=== PATIENT | female | born 1950 | race Caucasian/White ===

== ENCOUNTER → 2016-04-16 | Outpatient (CLI) | payer OTHER ==
--- NOTE | 2016-04-17 08:57 | DI ---
History: Left femoral radiculopathy. Evaluate for spinal abnormality. Procedure: This examination was performed on a 1.5 Tonya magnet in sagittal and axial projection with the right imaging sequences. Prior study x-ray of the hip done on 02/01/16 Findings: Alignment is anatomic. The conus medullaris is unremarkable. No disc height loss observed. Overall, there is some disc desiccation with the exception of L5-S1. Review image 8/15. Upper foramina on this study widely patent. No disc herniations are seen from T10-T11 down to T12-L1. L1-L2: Very slight disc bulge without nerve root encroachment. Some facet hypertrophic L2-L3 shows moderate facet hypertrophic without foraminal compromise. No disc herniation observed L3-L4 again shows moderate facet hypertrophy without foraminal compromise. No posterior disc bulge id entified. Nerve roots are well accommodated. L4-L5 shows a marked degree of facet hypertrophy with narrowing of the thecal sac, best seen on image 31/50. 6 mm sagittal diameter identified and marked narrowing of the lateral recesses right more so than left. This would primarily affect the right L5 nerve root. Regarding the passing of the L4 nerve root intraforaminally, there is contact on the left from below by disc protrusion that abuts the exi ting nerve is surrounded on either side by epidural fat; on the right side, there is nerve root conta ct from below by the protruding disc, 4/15 image, and posteriorly from the bony facet. Some epidural fat is seen superiorly with good nerve root accommodation. No slippage of the vertebral body is identified. L5-S1 shows widely patent foramina without spinal stenosis. Some facet hypertrophy without neurologic encroachment present. Impression: Spinal stenosis L4-L5 with narrowing of the thecal sac overall. Bilateral lateral recess encroachment probably affecting both L5 nerve roots right more so than left. Borderline foraminal compromise left side at L4-L5. Likely L4 nerve root compromise intraforaminally on the right side. See detailed discussion above. Multilevel facet hypertrophy. Level disc desiccation without height loss Slight posterior disc bulge L1-L2 which may account for discogenic pain without focal nerve root encr oachment
== END ==
LOC: MRI 12:47
PROVIDERS: ATTEND Orthopaedic Surgery
DX: M54.16 Radiculopathy, lumbar region (principal); G57.22 Lesion of femoral nerve, left lower limb; M54.42 Lumbago with sciatica, left side; M47.816 Spondylosis without myelopathy or radiculopathy, lumbar region
CPT/HCPCS: 72148

== ENCOUNTER → 2016-05-03 | Outpatient (CLI) | payer OTHER ==
[2016-05-03 15:46] LABS: CREATININE 0.7 mg/dL (0.50-1.20)
== END ==
LOC: LAB 09:41
PROVIDERS: ATTEND Physician Assistant Medical
DX: M54.16 Radiculopathy, lumbar region (principal)
CPT/HCPCS: 82565; 82947; 84520

== ENCOUNTER → 2016-06-14 | Outpatient (CLI) | payer OTHER ==
[2016-06-14 15:07] LABS: HEMOGLOBIN A1C 5.62 % (4.2-6.0); MEAN BLOOD GLUCOSE (CALC) 101.146 mg/dL
== END ==
LOC: LAB 11:29
DX: E11.9 Type 2 diabetes mellitus without complications (principal)
CPT/HCPCS: 83036

== ENCOUNTER 2016-07-13 12:24 | Emergency (ER) | payer OTHER ==
[2016-07-13] MEDS ORDERED: ASPIRIN 81 MG (BABY) CHEWABLE TABLET PO ONE (12:59)
[2016-07-13] MEDS ORDERED: NORMAL SALINE 10 ML SYRINGE FLUSH IVP PRN (12:59)
[2016-07-13] MEDS ORDERED: Sodium Chloride 0.9% 1,000 ML PRIMARY IV ONE (12:59)
--- NOTE | 2016-07-13 13:02 | EKG ---
[address] [address] Measurements Intervals [place] Rate: 69 P: 50 AL: 182 QRS: 35 QRSD: 81 T: 79 QT: 474 QTc: 492 Interpretive Statements SINUS RHYTHM PROLONGED QT INTERVAL Compared to ECG 12/28/2014 09:52:37 No significant changes Electronically Signed On 07-13-16 16:55:51 MDT by Magdy Rosas [email or web address]
[2016-07-13 13:16] LABS: BASOPHILS # (AUTO) 0.02 10*3/UL; BASOPHILS % (AUTO) 0.4 % (0-1); EOSINOPHILS # (AUTO) 0.11 10*3/UL; EOSINOPHILS % (AUTO) 2.2 % (0-8); HEMOGLOBIN 14.6 g/dL (12.0-16.0); LYMPHOCYTES # (AUTO) 1.76 10*3/uL; MEAN CORPUSCULAR HEMOGLOBIN 31.1 PG (27-31); MEAN CORPUSCULAR HGB CONC 33.2 g/dL (33-37); MEAN CORPUSCULAR VOLUME 93.6 FL (81-99); MEAN PLATELET VOLUME 11.9 FL (7.4-12.2); MONOCYTES # (AUTO) 0.33 10*3/UL (0.3-0.8); MONOCYTES % (AUTO) 6.7 % (5-15); NEUTROPHILS # (AUTO) 2.73 10*3/UL
[2016-07-13 13:18] LABS: PLATELET MORPHOLOGY COMMENT NORMAL MORPHOLOGY (NORM); RBC MORPHOLOGY COMMENT NORMAL MORPHOLOGY (NORM); WBC MORPHOLOGY COMMENT NORMAL MORPHOLOGY (NORM)
[2016-07-13 13:27] LABS: BLOOD UREA NITROGEN 26 mg/dL (7-22); BUN/CREATININE RATIO 37.14 (6-20); CALCIUM 9.3 mg/dL (8.7-10.7); EST GLOMERULAR FILTRATION > 60 (>60 ml/min/1.73m(2)); SERUM ALBUMIN 4.1 g/dL (3.5-4.8)
[2016-07-13 13:42] LABS: BILIRUBIN,URINE NEGATIVE (NEG); COLOR,URINE YELLOW; GLUCOSE, URINE (UA) NEGATIVE (NEG); NITRATE,URINE NEGATIVE (NEG); OCCULT BLOOD,URINE SMALL (NEG); PROTEIN,URINE NEGATIVE (NEG); UROBILINOGEN,URINE 0.2 mg/dL (0.2)
[2016-07-13 13:44] LABS: URINE SAMPLE TYPE VOID
[2016-07-13 13:45] LABS: SQUAMOUS EPITHELIAL CELL,UR RARE
[2016-07-13 13:45] LABS: CREATINE KINASE MB 0.86 NG/ML (0.00-5.00)
[2016-07-13 13:50] LABS: TROPONIN I < 0.012 ng/mL (< 0.040)
[2016-07-13 14:05] VITALS: RESP 18; TEMP 96.8
--- NOTE | 2016-07-13 14:12 | DI ---
AP CHEST X-RAY, 07/13/2016 11:59 AM : Clinical History: Chest pain. Previous Exam: None at this facility. There is no acute soft tissue or bony abnormality. There is mild cardiomegaly without CHF. There is n o acute infiltrate or effusion, and the lungs are hyperinflated. There is pulmonary arterial hyperten silvia and this patient may have underlying centrilobular emphysema. There are no pulmonary nodules. Readin. There is no acute infiltrate or effusion. 2. Cardiomegaly without CHF. 3. There is pulmonary arterial hypertension and this patient may have centrilobular emphysema.
--- NOTE | 2016-07-13 21:23 | PDOC ---
Palpitations HPI - General Chief Complaint: Dyspnea Stated Complaint: short of breath, fatigue, palpitations Date Seen by Provider: 07/13/16 Time Seen by Provider: 12:40 Source: POSITIVE: Patient Exam Limitations: POSITIVE: No limitations Nurse's Notes Reviewed & Considered: Yes Nurse's Notes Reviewed & Considered: Yes - History of Present Illness Initial Comments: The patient is a 65-year-old female. She states that for the past 1-1/2 weeks she has had intermittent episodes of a sensation of "an irregular heart rate". She states that she also has had some episodes of mild left subscapular discomfort. She states she has a sensation of "not being able to take a deep breath". She states she had a history of atrial fibrillation diagnosed 10 years ago. She is not on any anticoagulants. She does take atenolol and lisinopril. She smokes a half a pack of cigarettes per day. Body Location Affected: REPORTS: Chest (Palpitations as above) Timing: REPORTS: Intermittent Duration: >1 week (1-1/2 weeks) Severity: Moderate Quality: REPORTS: Other (Some mild discomfort left subscapular area) Gone now, lasted (minutes):: 1 Intermittent Episodes Lasting (minutes): 1 Context: REPORTS: Hx of Atrial Fibrillation. DENIES: Onset w/ Emotional Upset, Onset w/ Sleep, Hx of Caffeine Use, Hx of Decongestant Use, Hx of Cocaine Abuse , Hx of Amphetamine Abuse, Hx of Arrhythmia, Hx of VT, Hx of SVT, Hx of WPW, Other Associated Symptoms: REPORTS: Anxiety, Other (Left subscapular discomfort). DENIES: Fever, Chills, Sweating, Chest Pain, Chest Discomfort, Precordial Chest Pain, Mid-Chest Pain, Neck Pain, Back Pain, Headache, Hurts to Breathe, Shortness of Breath, Light-Headedness, Tingling in Hands, Tingling in Face, Muscle Spasms in Hands, Muscle Spasms in Feet Modifying Factors: improves with: None Reported Similar Symptoms Previously: Yes Recently seen/treated/hospitalized: No Any Prior Injuries Related to Current Complaint?: No - Patient Home Medications Home Medications: Home Medications Atenolol 1 tab PO DAILY #90 tab 11/28/15 Pravastatin Sodium 1 tab PO DAILY #90 tab 12/13/15 Lisinopril 1 tab PO DAILY #90 tab 04/03/16 Omeprazole 1 cap PO DAILY #30 cap 04/03/16 Clonazepam 0.5 - 1 tab PO TID #45 tab 05/30/16 Ropinirole HCl 0.5 mg PO BID #30 tab 07/02/16 L.acidoph & ShannanB.lactis [Probiotic] 1 cap PO DAILY 07/13/16 Sucralfate 1 gm PO DAILY 07/13/16 - Patient Allergies Allergies/Adverse Reactions: Allergies Allergy/AdvReac Type Severity Reaction Status Date / Time Sulfa (Sulfonamide Allergy Intermediate HIVES Verified 07/13/16 12:43 Antibiotics) Past Medical History - heen HEENT History: Denies History Cardiovascular History: Hypertension Respiratory History: Denies History Gastrointestinal History: GERD Genitourinary History: Denies History Endocrine History: Denies History Musculoskeletal History: Denies History Prosthesis or Implant: No Neurological History: Denies History Blood Disorders: Denies History Psychiatric History: Denies History Female Reproductive History: Denies History Obstetrical History: Denies History Cancer History: Denies History In Past Year Been Physically Harmed or Verbally Threatened: No History of MDRO: No Tobacco Use: Current Every Day Smoker Alcohol Use: Heavy How much alcohol do you normally drink a day?: 1-2 drinks daily Substance Use Type: None Previous Surgical History: Yes Type / Date of Surgery: total R knee, R toes, gums, tubal ligation Anesthesia Reactions: No Malignant Hyperthermia: No Family History of Malignant Hyperthermia: No Significant Family History: No pertinent family hx Past Medical History Reviewed: Reviewed - No Changes ROS - Limitations ROS Limitations: No Limitations Constitution: REPORTS: Denies Symptoms Cardiovascular: REPORTS: Heart Palpitations Respiratory: REPORTS: Denies Resp Symptoms Neurological: REPORTS: Denies Neuro Symptoms Gastrointestinal: REPORTS: Denies GI Symptoms Endocrine: REPORTS: Denies Symptoms Musculoskeletal: REPORTS: Denies MS Symptoms Genitourinary: REPORTS: Denies Symptoms Eyes: REPORTS: Denies Symptoms ENT: REPORTS: Denies Symptoms Skin: REPORTS: Denies Skin Symptoms Lympathic: REPORTS: Denies Lympathic Symptoms Immunologic: POSITIVE: Denies Symptoms Psychiatric: POSITIVE: Denies Psych Symptoms Palpitations Exam - General Appearance General Appearance: REPORTS: Alert, Cooperative, No Acute Distress, No Evidence of Trauma - HEENT HEENT: POSITIVE: Head Inspection Nml, Eyes Inspection Nml, Ears Inspection Nml, Nose Inspection Nml, Oral/Dental Inspect. Nml, Pharynx Inspect. Nml, PERRL, EOMI - Neck Neck: POSITIVE: Normal Inspection - Respiratory Respiratory: REPORTS: No Respiratory Distress, Breath Sounds Normal, Chest Non- Tender - Cardiovascular Cardiovascular: POSITIVE: Regular Rate and Rhythm, Normal PMI, No JVD, No Murmur , No Gallop, No Friction Rub, Other (patient kept on photograph retoucher in ER; remained in normal sinus rhythm with an occasional PAC) Peripheral Pulses: Radial (R): 2+, Radial (L): 2+ - Abdomen Abdomen: Soft: (All Quadrants), Normal Bowel Sounds: (All Quadrants), Denies Tenderness: (All Quadrants), No Splenomegaly: (All Quadrants), No Hepatomegaly: (All Quadrants), No Guarding: (All Quadrants), No Rebound: (All Quadrants), No Palpable Pulse: (All Quadrants), No Palpabale Mass: (All Quadrants), No Distention: (All Quadrants), No Rigidity: (All Quadrants) - Back Back: POSITIVE: Normal Inspection - Skin Skin: REPORTS: Intact, Normal For Race, Warm, Dry, No Rash - Extremities Extremity: Non-Tender: (All Extremities), Normal ROM: (All Extremities), Normal Inspection: (All Extremities) - Neurological / Psychological Neurological: POSITIVE: Oriented X3, home aide Normal As Tested, Motor Normal, Sensation Normal, 5, 6 Palpitations Progress - Results Reviewed by me Xrays/CTs/US Reviewed by me: Yes Discussed with Radiologist: No Radiology Findings: Chest x-ray normal Lab Results Reviewed: Yes (all normal) Lab Results:: Laboratory Results 07/13/16 07/13/16 Range/Units 12:36 13:00 WBC 4.96 (4.8-10.8) 10^3/uL RBC 4.70 (4.20-5.40) 10^6/uL Hgb 14.6 (12.0-16.0) g/dL Hct 44.0 (37.0-47.0) % MCV 93.6 (81-99) FL MCH 31.1 H (27-31) PG MCHC 33.2 (33-37) g/dL RDW Std Deviation 50.4 H (39-50) fL RDW Coeff of [place] 15.1 H (11.5-14.5) % Plt Count 132 L (140-350) 10*3/uL MPV 11.9 (7.4-12.2) FL Immature Gran % (Auto) 0.2 (0-5) % Neut % (Auto) 55.0 (50-80) % Lymph % (Auto) 35.5 (10-50) % [place] % (Auto) 6.7 (5-15) % Eos % (Auto) 2.2 (0-8) % Baso % (Auto) 0.4 (0-1) % Immature Gran # (Auto) 0.01 10*3/UL Neut # (Auto) 2.73 10*3/UL Lymph # (Auto) 1.76 10*3/uL [place] # (Auto) 0.33 (0.3-0.8) 10*3/UL Eos # (Auto) 0.11 10*3/UL Baso # (Auto) 0.02 10*3/UL WBC Morphology Comment Normal morphology (NORM) Plt Morphology Comment Normal morphology (NORM) RBC Morph Comment Normal morphology (NORM) Sodium 140 (135-145) meq/L Potassium 3.9 (3.8-5.2) meq/L Chloride 105 (98-112) meq/L Carbon Dioxide 25 (23-33) meq/L Anion Gap 10 (5-20) BUN 26 H (7-22) mg/dL Creatinine 0.7 (0.50-1.20) mg/dL Estimated GFR > 60 (>60 ml/min/1.73m(2)) BUN/Creatinine Ratio 37.14 H (6-20) Glucose 95 (78-110) mg/dL Calculated Osmolality 294.0 H (267-292) mOsm/kg Calcium 9.3 (8.7-10.7) mg/dL Total Bilirubin 0.8 (0.3-1.2) mg/dL AST 47 H (8-39) IU/L ALT 46 (9-52) IU/L Alkaline Phosphatase 69 (38-126) IU/L CK-MB (CK-2) 0.86 (0.00-5.00) NG/ML Troponin I < 0.012 (< 0.040) ng/mL Total Protein 7.0 (6.1-8.0) g/dL Albumin 4.1 (3.5-4.8) g/dL Globulin 2.9 (2.50-4.10) g/dL Albumin/Globulin Ratio 1.40 (1.3-2.0) mg/g TSH 1.17 (0.2700-4.2000) uIU/mL Ur Collection Type Void Urine Color Yellow Urine Clarity clear (CLEAR) Urine pH 6.0 (5.0-8.5) Ur Specific [place] 1.015 (1.005-1.030) Urine Protein Negative (NEG) mg/dl Urine Glucose (UA) Negative (NEG) mg/dL Urine Ketones Negative (NEG) Urine Occult Blood Small (NEG) Urine Nitrate Negative (NEG) Urine Bilirubin Negative (NEG) Urine Urobilinogen 0.2 (0.2) mg/dL Ur Leukocyte Esterase Negative (NEG) Urine RBC 2-5 (NONE) /hpf Urine WBC None (NONE) Ur Squamous Epith Cells Rare (NONE) Ur Renal Epithelial Cell None (NONE) Urine Crystals None Urine Bacteria None (NONE) Urine Casts None Urine Mucus None (NONE) Urine Trichomonas None (NONE) Urine Yeast None (NONE) EKG Interpreted/Reviewed By Me:: Yes (normal) EKG Interpretation:: POSITIVE: Normal Sinus Rhythm, Normal Rate, Normal Intervals, Normal [place], Normal QRS, Normal ST/T - Patient's Progress Pain Medication Addressed: POSITIVE: Not Applicable School/Work Release Addressed: POSITIVE: Not Applicable Re-examine Time: 14:20 Re-Examine Comment: Patient remained in normal sinus rhythm throughout her stay in the emergency room. Holter monitor placed in the emergency room and patient to follow-up with her primary care provider after holter monitoring is completed. Status: POSITIVE: Unchanged, Re-Examined - Consult Counseled: POSITIVE: Patient, RE: Lab Results, RE: Radiology Results, RE: DX, RE : Need for F/U Patient Care Time - Estimated PCT Patient Care Time (In Minutes): 45 Vital Signs - Recent Vital Signs Vital Signs: Vital Signs (Last 8 hours) Pulse Resp BP Pulse Ox 07/13/16 14:40 67 18 153/95 93 07/13/16 14:00 65 18 162/90 93 07/13/16 13:40 63 18 153/91 91 07/13/16 13:20 66 18 150/91 91 - VS Reviewed Vital Signs Reviewed: Yes Discharge Clinical Impression: Heart palpitations Discharge Disposition: Discharged to Home Condition: Stable Patient Instructions Given at Discharge: Palpitations (ED) Additional Instructions: I am not completely sure what the source of your sensation of irregular heartbeat is. Your heart rate has been completely normal and regular while you have been in the emergency room. The symptoms can easily be caused by anxiety. They can also be caused by irregularity of the heart rate. We have placed you on what is known as a Holter monitor in the emergency room. This will monitor every beat your heart makes while you are wearing it. Please follow the instructions of the environmental test technician who is placing the monitor. Follow-up with your primary care provider 5-10 days after the completion of your monitoring, and he or she will review the results and decide if any further treatment or evaluation is necessary. Return here anytime if condition worsens in any way. Follow Up With: JUAN DAVID REYES [Primary Care Provider] - (Instructions as above. Follow-up with your primary care provider as above. Return here anytime if condition worsens in any way.)
== END 2016-07-13 14:57 | disposition home or self-care (01) ==
LOC: ER 12:24
DX: R00.2 Palpitations (principal); I48.91 Unspecified atrial fibrillation
CPT/HCPCS: 71010; 80053; 81001; 82553; 84443; 84484; 85025; 93005; 93010; 93225; 93226; 93227; 99284; J7030

== ENCOUNTER → 2016-09-18 | Outpatient (CLI) | payer OTHER ==
[2016-09-18 14:40] LABS: HEMOGLOBIN A1C 5.37 % (4.2-6.0)
== END ==
LOC: LAB 09:27
PROVIDERS: ATTEND Physician Assistant Medical
DX: R73.09 Other abnormal glucose (principal); F17.200 Nicotine dependence, unspecified, uncomplicated
CPT/HCPCS: 83036

== ENCOUNTER → 2016-11-02 | Outpatient (CLI) | payer OTHER ==
--- NOTE | 2016-11-06 06:31 | DI ---
MRI LUMBAR SPINE W/O CN,11/02/2016 12:46 PM: Clinical History: L3/4 stenosis. Previous Exam: April 16, 2016 Findings: Multiplanar MR images are obtained through the lumbar spine without contrast, and demonstrate anatomi c alignment without fractures. Vertebral body height is preserved. There are multiple broad-based dis c bulges throughout the lumbar spine. The spinal cord descends normally with normal conus at the L1 level. There is normal signal throughou t the visualized portions of the spinal cord. There is a 3 cm simple cyst noted within the left kidney. This was seen on the prior exam. Individual intervertebral disc spaces: L1/2: No significant stenosis. L2/3: There is a broad-based disc bulge without significant stenosis. L3/4: There is a broad-based disc bulge with some facet and ligamentum flavum hypertrophy contributin g to minimal bilateral neural foraminal narrowing. L4/5: There is significant facet and ligamentum flavum hypertrophy and a broad-based disc bulge contr ibuting to moderate central canal stenosis and moderate bilateral lateral recess stenosis. This appea rs unchanged from the prior exam. L5/S1: There is significant facet hypertrophy and no significant disc disease and no significant sten osis. Impression: Facet hypertrophy and degenerative disc disease throughout essentially unchanged from the prior exam. This is worst at the L4/5 level.
== END ==
LOC: MRI 12:42
DX: M48.06 Spinal stenosis, lumbar region (principal); M51.16 Intervertebral disc disorders with radiculopathy, lumbar region
CPT/HCPCS: 72148

== ENCOUNTER → 2016-11-12 | Outpatient (CLI) | payer OTHER ==
--- NOTE | 2016-11-12 14:10 | DI ---
MRI LOW EXTREMITY JNT W/O CN,11/12/2016 10:58 AM: Clinical History: Ganglion cyst of the left ankle and foot. Previous Exam: Plain films of the left foot performed October 17, 2016 Findings: Multiplanar MR images are obtained through the left ankle without contrast, and demonstrate a complex cystic mass within the soft tissues of the lateral left foot just anterior to the left tibiofibular joint. This is a tubular shaped cystic structure arising from the sinus Tarsi measuring [address] and measuring a length of 30 mm. The Achilles tendon is unremarkable. The peroneal tendons are unremarkable. The subtalar joints are u nremarkable. There are some cystic changes involving the calcaneonavicular joint where there appears to be some calcaneonavicular fusion. The plantar fascia is unremarkable. The major vascular flow voids are also unremarkable. Signal within the musculature is unremarkable. 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
== END ==
LOC: MRI 10:53
PROVIDERS: ATTEND Orthopaedic Surgery
DX: M67.472 Ganglion, left ankle and foot (principal); Q66.89 Other specified congenital deformities of feet
CPT/HCPCS: 73721